=== PATIENT | female | born 1975 | race Caucasian/White ===

== ENCOUNTER 2023-08-16 04:05 | Emergency (ER) | payer BC, SELFPAY ==
[2023-08-16] VITALS (7 sets, daily range): BP systolic 113–154; BP diastolic 64–85; PULSE 77–83; TEMP 36.6; O2SAT 99; BMI 29.2
--- NOTE | 2023-08-16 04:44 | ED.ARRPALP1 ---
HPI - Arrhythmia/Palpitations General Chief Complaint: Arrhythmia/Palpitations Stated Complaint: RAPID HEART BEAT Time Seen by Provider: 08/16/23 04:21 Source: patient Mode of arrival: walk-in Limitations: no limitations History of Present Illness HPI narrative: This 48-year-old female who had a breast lift last week and [place] and has a history of anxiety in the past and was told at the time that she had her breast lift that she had runs of SVT and was transferred to the emergency department where she stayed for several hours and then signed out AGAINST MEDICAL ADVICE presents for evaluation of palpitations. The patient states she feels like she cannot take a deep breath and like her heart is racing. She denies that she is actually short of breath. She does have a history of tobacco use. She is also cold and clammy and states she cannot get warm. She denies any nausea or vomiting. The patient is on thyroid replacement because she has had her thyroid removed. She denies any abdominal pain or back pain. She has no lower extremity pain or swelling. She is not having postoperative breast pain. Related Data Home Medications ?Medication ?Instructions ?Recorded ?Confirmed levothyroxine 175 mcg tablet mcg 08/16/23 methocarbamol 750 mg tablet mg 08/16/23 pregabalin 150 mg capsule mg 08/16/23 trazodone 50 mg tablet mg 08/16/23 Allergies Allergy/AdvReac Type Severity Reaction Status Date / Time iodine Allergy Unknown Verified 08/16/23 04:17 Review of Systems ROS Status of ROS 10 or more systems reviewed and unremarkable except as noted in history and below Exam Narrative Exam Narrative: Vital signs and Nursing Notes reviewed: Patient is afebrile with a normal pulse, blood pressure is mildly elevated at 154/83, she is not hypoxic with pulse ox of 99% on room air General: Awake, alert, nontoxic female, she is covered in a warm blanket but still shivering, no respiratory distress HEENT: Normocephalic atraumatic, mucous membranes are moist and pink, eyes are clear, normal conjunctiva, vision is grossly intact Neck: Supple, no meningeal signs, no anterior or posterior cervical lymphadenopathy Chest: Lungs are clear to auscultation with good air entry, there is no wheezing rhonchi or rales appreciated no accessory muscle use, patient is speaking in complete sentences-no chest wall tenderness to palpation CVS: Regular rate and rhythm S1-S2, no murmurs rubs or gallops, pulses are brisk and equal bilaterally ABD: Soft, nondistended, nontender, no rebound guarding or rigidity, bowel sounds are normal, no pulsatile masses appreciated Extremities: Moving all extremities, no lower extremity tenderness or swelling noted, negative Homans' sign, pulses are brisk and equal bilaterally Skin: Cool to the touch, diaphoretic Neuro: No focal deficits Constitutional Vital Signs, click to edit/add: Last Vital Signs Temp 98 F 08/16/23 04:14 Pulse 83 08/16/23 04:14 Resp 20 08/16/23 04:14 BP 127/69 08/16/23 06:00 Pulse Ox 99 08/16/23 04:14 O2 Del Method Room Air 08/16/23 04:14 Course Vital Signs Vital signs: Vital Signs Temperature 98 F 08/16/23 04:14 Pulse Rate 83 08/16/23 04:14 Respiratory Rate 20 08/16/23 04:14 Blood Pressure 154/83 H 08/16/23 04:14 Pulse Oximetry 99 08/16/23 04:14 Oxygen Delivery Method Room Air 08/16/23 04:14 Temperature 98 F 08/16/23 04:14 Pulse Rate 83 08/16/23 04:14 Respiratory Rate 20 08/16/23 04:14 Blood Pressure 127/69 08/16/23 06:00 Pulse Oximetry 99 08/16/23 04:14 Oxygen Delivery Method Room Air 08/16/23 04:14 MDM - Arrhythmia/Palpitations MDM Narrative Medical decision making narrative: This 48-year-old female presents for evaluation of palpitations, she thinks that she had SVT while having a surgical procedure recently in [place]. She was sent to the emergency department from PACU for evaluation. She states that after being in the ER for several hours and having nothing happen she signed out AGAINST MEDICAL ADVICE. She states she woke up this morning and could not catch her breath and felt like she was having palpitations. She does have a history of anxiety in the remote past. She has a history of having her thyroid removed and is on thyroid replacement. She is a smoker. She admits to social alcohol use and had been recently told to avoid drinking due to her surgery. She also was told to stop taking her medications for 3 days prior to her surgery but has resumed her medication since. Upon arrival her vital signs were taken and were normal with pulse in the 70s to 80s. EKG done upon arrival was a sinus rhythm at 77 bpm with no changes. She was placed on the fundraising consultant and has been monitored without any ectopy or arrhythmias noted. Cardiac workup was ordered. She has a normal white count and hemoglobin. Electrolytes are normal. TSH is normal. Troponin and D-dimer are also normal. She was medicated emergency department with IV fluids, 324 mg of aspirin and 1 mg of oral Ativan. On reevaluation she states she is feeling better. I offered her referral to outpatient cardiology but she states that she has a referral from last week when she had SVT or what ever else it was that she had when she was in [place]. I will still give her referral to cardiology locally. She will be discharged home with a short course of Ativan to use as needed if she has ongoing feelings of panic or anxiety and she was instructed to return to the emergency department for any chest pain or concerns for palpitations or arrhythmias. I explained to her that at times people have cardiac arrhythmias that we are unable to catch in the emergency department and she may require a fundraising consultant for a period of time to more thoroughly evaluate for arrhythmia or other cardiac abnormalities. At this time she is hemodynamically stable for discharge. Lab Data Labs: Lab Results 08/16/23 Range/Units 04:50 WBC 9.5 (4.0-11.0) 10^3/uL RBC 4.34 (4.20-5.40) 10^6/uL Hgb 13.6 (12.0-16.0) g/dL Hct 41.1 (36.0-48.0) % MCV 94.7 (81.0-99.0) fL MCH 31.3 (26.7-34.0) pg MCHC 33.1 (29.9-35.2) g/dL RDW 13.3 (11.0-15.0) % Plt Count 305 (150-450) 10^3/uL MPV 9.7 (9.5-13.5) fL Neut % (Auto) 70.6 (43.0-75.0) % Lymph % (Auto) 19.0 L (20.5-60.0) % [place] % (Auto) 5.0 (1.7-12.0) % Eos % (Auto) 4.3 (0.9-7.0) % Baso % (Auto) 0.9 (0.2-2.0) % Neut # (Auto) 6.7 H (1.4-6.5) 10^3/uL Lymph # (Auto) 1.8 (1.2-3.8) 10^3/uL [place] # (Auto) 0.5 (0.3-0.8) 10^3/uL Eos # (Auto) 0.4 (0.0-0.7) 10^3/uL Baso # (Auto) 0.1 (0.0-0.1) 10^3/uL Abs Immat Gran (auto) 0.02 (0.00-0.03) 10^3/uL Imm/Tot Granulo (auto) 0.2 (0.0-0.5) % D-Dimer 0.21 (<=0.59) mg/L FEU Sodium 140 (136-145) mmol/L Potassium 3.7 (3.5-5.1) mmol/L Chloride 108 H (98-107) mmol/L Carbon Dioxide 26.1 (21.0-32.0) mmol/L Anion Gap 9.6 BUN 17.0 (7.0-18.0) mg/dL Creatinine 0.86 (0.55-1.02) mg/dL Est GFR ( Amer) >60 (>=60) Est GFR (Non-Af Amer) >60 (>=60) BUN/Creatinine Ratio 19.8 Glucose 96 (74-106) mg/dL Calcium 9.5 (8.5-10.1) mg/dL Total Bilirubin 0.4 (0.2-1.0) mg/dL AST 16 (15-37) U/L ALT 28 (14-59) U/L Alkaline Phosphatase 62 (46-116) U/L Total Creatine Kinase 108 (26-192) U/L Troponin I High Sens 9.3 (4.0-51.3) pg/mL Total Protein 7.2 (6.4-8.2) g/dL Albumin 3.5 (3.4-5.0) g/dL Globulin 3.7 g/dL Albumin/Globulin Ratio 0.9 TSH 0.686 (0.358-3.740) uIU/mL ECG Data Attestation: I personally reviewed and interpreted this ECG as follows: (Sinus rhythm at 77 bpm, normal axis, normal intervals, no acute ST segment elevation or T wave inversion) Discharge Plan Discharge Stand Alone Forms: Portal Instructions Chief Complaint: Arrhythmia/Palpitations Clinical Impression: Palpitations, Anxiety Patient Disposition: Home, Self-Care Time of Disposition Decision: 06:29 Condition: Good Prescriptions / Home Meds: No Action levothyroxine 175 mcg tablet trazodone 50 mg tablet methocarbamol 750 mg tablet pregabalin 150 mg capsule Print Language: Yakut Instructions: Heart Palpitations (ED), Generalized Anxiety Disorder (ED) Referrals: LORRAINE JOHNSON [Primary Care Provider] - 1 week Wayne Gipson MD [Physician] - 1 week
[2023-08-16 04:58] LABS: Basophils Absolute Auto 0.1 10^3/uL (0.0-0.1); Basophils Percent Auto 0.9 % (0.2-2.0); Eosinophils Absolute Auto 0.4 10^3/uL (0.0-0.7); Eosinophils Percent Auto 4.3 % (0.9-7.0); Hematocrit 41.1 % (36.0-48.0); Hemoglobin 13.6 g/dL (12.0-16.0); Immature Granulocytes Abs Auto 0.02 10^3/uL (0.00-0.03); Immature Granulocytes Pct Auto 0.2 % (0.0-0.5); Lymphocytes Absolute Auto 1.8 10^3/uL (1.2-3.8); Mean Corpuscular HGB Conc 33.1 g/dL (29.9-35.2); Mean Corpuscular Hemoglobin 31.3 pg (26.7-34.0); Mean Corpuscular Volume 94.7 fL (81.0-99.0); Mean Platelet Volume 9.7 fL (9.5-13.5); Monocytes Absolute Auto 0.5 10^3/uL (0.3-0.8); Neutrophils Absolute Auto 6.7 10^3/uL (1.4-6.5); Neutrophils Percent Auto 70.6 % (43.0-75.0); Platelet Count 305 10^3/uL (150-450); Red Blood Count 4.34 10^6/uL (4.20-5.40); Red Cell Distribution Width 13.3 % (11.0-15.0); White Blood Count 9.5 10^3/uL (4.0-11.0)
[2023-08-16] MEDS: 0.9 % SODIUM CHLORIDE 1,000 ML 1000 ML IV (04:59)
[2023-08-16] MEDS: LORAZEPAM 0.5 MG TABLET 1 MG PO (05:01)
[2023-08-16] MEDS: ASPIRIN 81 MG TAB.CHEW 324 MG PO (05:01)
[2023-08-16 05:12] LABS: D Dimer 0.21 mg/L FEU (<=0.59)
[2023-08-16 05:17] LABS: Alanine Aminotransferase 28 U/L (14-59); Albumin Globulin Ratio 0.9; Albumin Level 3.5 g/dL (3.4-5.0); Alkaline Phosphatase 62 U/L (46-116); Anion Gap 9.6; Aspartate Amino Transferase 16 U/L (15-37); BUN Creatinine Ratio 19.8; Bilirubin Total 0.4 mg/dL (0.2-1.0); Calcium 9.5 mg/dL (8.5-10.1); Carbon Dioxide 26.1 mmol/L (21.0-32.0); Chloride 108 mmol/L (98-107); Estimated GFR (African America >60 (>=60); Estimated GFR (Non-African Ame >60 (>=60); Globulin 3.7 g/dL; Glucose 96 mg/dL (74-106); Potassium 3.7 mmol/L (3.5-5.1); Sodium 140 mmol/L (136-145); Total Protein 7.2 g/dL (6.4-8.2)
[2023-08-16 05:24] LABS: Creatine Kinase 108 U/L (26-192); Thyroid Stimulating Hormone 0.686 uIU/mL (0.358-3.740); Troponin I High Sensitivity 9.3 pg/mL (4.0-51.3)
--- NOTE | 2023-08-16 07:34 | ECG_ITS ---
[facility] Test Date: 2023-08-16 Pat Name: NOHELIA NG Department: Room: - Gender: Female Triage Nurse: : 1975 Requested By: LORRAINE JOHNSON Order Number: [id number] Reading MD: JONA MORROW Measurements Intervals [place] Rate: 77 P: 60 WA: 142 QRS: 58 QRSD: 78 T: 60 QT: 358 QTc: 390 Interpretive Statements 1100 Sinus rhythm 8102 Low QRS voltage in chest leads 9120 atypical ECG No previous ECG available for comparison Electronically Signed On 08-16-2023 21:55:29 EDT by JONA MORROW
== END 2023-08-16 06:45 | disposition home or self-care (01) ==
PROVIDERS: Emergency Provider Emergency Medicine; PCP Nurse Practitioner Family
DX: R00.2 Palpitations (principal); F41.9 Anxiety disorder, unspecified; F17.200 Nicotine dependence, unspecified, uncomplicated; E89.0 Postprocedural hypothyroidism; Z79.890 Hormone replacement therapy
CPT/HCPCS: 36415; 80053; 82550; 84443; 84484; 85025; 85378; 93005; 99284